=== PATIENT | male | born 1975 | race Caucasian/White ===

== ENCOUNTER 2016-08-04 07:31 | Emergency (ER) | payer SELFPAY ==
[~2016-08-04] VITALS: Ht 182.9 cm; Wt 79.8 kg
[2016-08-04 07:59] VITALS: BP 90/60
== END 2016-08-04 08:12 | disposition home or self-care (01) ==
LOC: ER 07:31
DX: M79.645 Pain in left finger(s) (principal); Z89.022 Acquired absence of left finger(s)